=== PATIENT | male | born 2005 | race Caucasian/White ===

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

== ENCOUNTER 2025-01-09 12:35 | Inpatient (IN) | payer OTHER, MEDICAID ==
[~2025-01-09] VITALS: Ht 170.2 cm; Wt 95.3 kg
[2025-01-09 13:15] LABS: CHLORIDE 101 mEq/L (98-107); SODIUM 139 mEq/L (136-145)
[2025-01-09 13:16] LABS: CALCIUM 10.2 mg/dL (8.7-10.4); CARBON DIOXIDE 28 mEq/L (21-32)
[2025-01-09 13:21] LABS: CREATININE 0.8 mg/dL (0.6-1.3); GLUCOSE 142 mg/dL (70-105); UREA NITROGEN BLOOD 8 mg/dL (9-23)
[2025-01-09 13:22] LABS: HEMATOCRIT. 44.2 % (42.0-52.0); HEMOGLOBIN. 14.5 g/dL (14.0-18.0); MEAN CORPUSCULAR HEMOGLOBIN 28.9 pg (28.0-32.0); MEAN CORPUSCULAR HGB CONC 32.7 g/dL (31.0-37.0); MEAN CORPUSCULAR VOLUME 88.2 fL (80.0-94.0); MEAN PLATELET VOLUME 8.4 fl (7.4-10.4); PLATELET 319 x1000/uL (130-400); RED BLOOD CELL COUNT 5.01 mill/uL (4.7-6.1); RED CELL DISTRIBUTION WIDTH 13.7 % (11.6-14.6); WHITE BLOOD COUNT 12.4 x1000/uL (4.5-11.0)
[2025-01-09 13:23] LABS: ALANINE AMINOTRANSFERASE 370 IU/L (10-49); ALBUMIN 5.1 g/dL (3.2-4.8); ASPARTATE AMINOTRANSFERASE 157 IU/L (<34); BILIRUBIN DIRECT 0.6 mg/dL (<=3.0); BILIRUBIN TOTAL 1.7 mg/dL (0.1-1.0); PROTEIN TOTAL 8.3 g/dL (6.0-8.3)
[2025-01-09 13:26] LABS: DIFFERENTIAL COMMENT 1
[2025-01-09] MEDS: MORPHINE SULFATE 4 MG/ML INJ (FOR IV/IM USE) IV ONE (14:04)
[2025-01-09] MEDS: ONDANSETRON HCL 4MG/2ML INJ IV ONE (14:04)
[2025-01-09] MEDS ORDERED: METRONIDAZOLE 500 MG PREMIX 100 ML IV ONE (16:45)
[2025-01-09] MEDS ORDERED: DOCUSATE SODIUM 100MG CAPSULE PO PRN (17:15)
[2025-01-09] MEDS ORDERED: ONDANSETRON HCL 4MG/2ML INJ IV PRN (17:15)
[2025-01-09] MEDS ORDERED: IPRATROPIUM/ALBUTEROL 0.5-3(2.5)MG/3ML NEB HHN PRN (17:15)
[2025-01-09] MEDS ORDERED: MAGNESIUM/ALUMINUM HYDROXIDE/SIMETHICONE 30ML UDC PO PRN (17:15)
[2025-01-09] MEDS ORDERED: ACETAMINOPHEN 325MG TABLET PO PRN ×2 (17:15)
[2025-01-09] MEDS ORDERED: METRONIDAZOLE 500 MG PREMIX 100 ML IV SCH (17:15)
[2025-01-09] MEDS ORDERED: CLONIDINE 0.1MG TABLET PO PRN (17:15)
[2025-01-09 19:59] LABS: ALBUMIN 5.2 g/dL (3.2-4.8)
[2025-01-09] MEDS: SODIUM CHLORIDE 0.9% (SEPSIS BOLUS) IV NR (20:30)
[2025-01-09] MEDS: PIPERACILLIN/TAZO 3.375G/50ML IV NR (20:35)
[2025-01-09] MEDS: DEXT 5%/0.45% NACL 1000ML 1,000 ML IV SCH (21:00)
[2025-01-09] MEDS ORDERED: PIPERACILLIN/TAZO 3.375G/50ML 50 ML IV SCH (22:00)
[2025-01-09 22:43] VITALS: BP 147/96; PULSE 97; RESP 12; TEMP 36.8; O2SAT 98
[2025-01-09 22:54] VITALS: BP 147/96; PULSE 97; RESP 12; TEMP 36.8
[2025-01-09] MEDS ORDERED: PIPERACILLIN/TAZO 3.375G/50ML IV SCH (23:30)
[2025-01-10] VITALS: BP 125/70; PULSE 91; RESP 19; TEMP 36.8; O2SAT 97
[2025-01-10 04:00] VITALS: BP 121/75; PULSE 91; RESP 16; TEMP 36.7; O2SAT 98
[2025-01-10] MEDS: KETOROLAC 15MG/ML VIAL IV PRN (04:03)
[2025-01-10] MEDS: PIPERACILLIN/TAZO 3.375G/50ML 50 ML IV SCH (05:39)
[2025-01-10 07:21] LABS: HEMATOCRIT 37.1 % (42.0-52.0); HEMOGLOBIN 12.6 g/dL (14.0-18.0); MEAN CORPUSCULAR HEMOGLOBIN 30.3 pg (28.0-32.0); MEAN CORPUSCULAR VOLUME 89.1 fL (80.0-94.0); PLATELET 258 x1000/uL (130-400); RED BLOOD CELL COUNT 4.16 mill/uL (4.7-6.1); RED CELL DISTRIBUTION WIDTH 13.4 % (11.6-14.6); WHITE BLOOD COUNT 10.7 x1000/uL (4.5-11.0)
[2025-01-10 08:00] VITALS: BP 101/69; PULSE 89; RESP 20; TEMP 36.7; O2SAT 98
[2025-01-10 08:20] LABS: CHLORIDE 102 mEq/L (98-107); POTASSIUM 3.7 mEq/L (3.5-5.1); SODIUM 138 mEq/L (136-145)
[2025-01-10 08:21] LABS: CALCIUM 9.4 mg/dL (8.7-10.4); CARBON DIOXIDE 28 mEq/L (21-32)
[2025-01-10 08:26] LABS: CREATININE 0.6 mg/dL (0.6-1.3); GLUCOSE 130 mg/dL (70-105); UREA NITROGEN BLOOD 8 mg/dL (9-23)
[2025-01-10 08:28] LABS: ALANINE AMINOTRANSFERASE 204 IU/L (10-49); ALBUMIN 4.4 g/dL (3.2-4.8); ASPARTATE AMINOTRANSFERASE 47 IU/L (<34); BILIRUBIN TOTAL 1.5 mg/dL (0.1-1.0)
[2025-01-10] MEDS: PANTOPRAZOLE SODIUM 40 MG/VIAL IV SCH (09:39)
[2025-01-10 09:44] LABS: PLATELET ESTIMATE NORMAL
[2025-01-10 12:00] VITALS: BP 110/60; PULSE 97; RESP 16; TEMP 36.8; O2SAT 99
[2025-01-10 16:00] VITALS: BP 112/50; PULSE 99; RESP 18; TEMP 36.7; O2SAT 98
[2025-01-10] MEDS: LACTATED RINGERS 1,000 ML IV SCH (19:33)
[2025-01-10] MEDS: VANCOMYCIN 2,000 MG in SODIUM CHLORIDE 0.9% 500 ML IV NR (19:33)
[2025-01-10 20:00] VITALS: BP 124/84; PULSE 93; RESP 16; TEMP 37; O2SAT 96
[2025-01-11] VITALS: BP 115/84; PULSE 100; RESP 18; TEMP 36.6; O2SAT 97
[2025-01-11 04:00] VITALS: BP 120/77; PULSE 94; RESP 18; TEMP 36.8; O2SAT 96
[2025-01-11] MEDS: VANCOMYCIN 1.5GM/250ML IV SCH (06:06)
[2025-01-11 07:24] LABS: BASOPHILS % 0.2 % (0.0-2.0); EOSINOPHILS % 0.4 % (0.0-5.0); HEMATOCRIT. 34.6 % (42.0-52.0); HEMOGLOBIN. 11.8 g/dL (14.0-18.0); LYMPHOCYTES % 12.5 % (20.0-50.0); MEAN CORPUSCULAR HEMOGLOBIN 30.2 pg (28.0-32.0); MEAN CORPUSCULAR HGB CONC 34.1 g/dL (31.0-37.0); MEAN CORPUSCULAR VOLUME 88.4 fL (80.0-94.0); MEAN PLATELET VOLUME 8.4 fl (7.4-10.4); MONOCYTES % 9.7 % (2.0-8.0); NEUTROPHILS % 77.2 % (40.0-76.0); PLATELET 231 x1000/uL (130-400); RED BLOOD CELL COUNT 3.91 mill/uL (4.7-6.1); RED CELL DISTRIBUTION WIDTH 13.5 % (11.6-14.6); WHITE BLOOD COUNT 8.8 x1000/uL (4.5-11.0)
[2025-01-11 07:49] LABS: CALCIUM 9.5 mg/dL (8.7-10.4); CARBON DIOXIDE 27 mEq/L (21-32); CHLORIDE 101 mEq/L (98-107); POTASSIUM 3.7 mEq/L (3.5-5.1); SODIUM 139 mEq/L (136-145)
[2025-01-11 07:54] LABS: ALANINE AMINOTRANSFERASE 114 IU/L (10-49); GLUCOSE 107 mg/dL (70-105); TRIGLYCERIDE 93 mg/dL (0-150); UREA NITROGEN BLOOD 8 mg/dL (9-23)
[2025-01-11 07:55] LABS: ALBUMIN 4.3 g/dL (3.2-4.8)
[2025-01-11 07:56] LABS: ASPARTATE AMINOTRANSFERASE 20 IU/L (<34); BILIRUBIN DIRECT 0.6 mg/dL (<=3.0); BILIRUBIN TOTAL 1.6 mg/dL (0.1-1.0); PHOSPHORUS 3.2 mg/dL (2.5-4.9)
[2025-01-11 08:00] VITALS: BP 124/83; PULSE 88; RESP 20; TEMP 36.7; O2SAT 99
[2025-01-11 09:32] LABS: CLARITY URINE CLEAR (CLEAR); COLOR URINE YELLOW (YELLOW); GLUCOSE URINE NEGATIVE (NEGATIVE); KETONES URINE TRACE (NEGATIVE); LEUKOCYTE ESTERASE URINE TRACE (NEGATIVE); NITRITE URINE NEGATIVE (NEGATIVE); OCCULT BLOOD URINE NEGATIVE (NEGATIVE); PH URINE 6.5 (4.5-8.0); PROTEIN URINE TRACE (NEGATIVE); SPECIFIC GRAVITY URINE 1.014 (1.005-1.030)
[2025-01-11 09:55] LABS: BACTERIA URINE 1+; RBC URINE NONE SEEN /hpf (0-2); SQUAMOUS EPITHELIAL CELL URINE 1+ /lpf (RARE/1+); YEAST URINE NONE SEEN
[2025-01-11 10:14] LABS: *AMPHETAMINES SCREEN URINE NEGATIVE (NEGATIVE); *BARBITURATES SCREEN URINE NEGATIVE (NEGATIVE); *BENZODIAZEPINES SCREEN URINE NEGATIVE (NEGATIVE); *COCAINE SCREEN URINE NEGATIVE (NEGATIVE); CANNABINOID URINE SCREEN NEGATIVE (NEGATIVE); METHADONE URINE SCREEN NEGATIVE (NEGATIVE); OPIATES URINE SCREEN NEGATIVE (NEGATIVE); PHENCYCLIDINE URINE SCREEN NEGATIVE (NEGATIVE)
[2025-01-11 10:15] LABS: ECSTASY MDMA SCREEN URINE NEGATIVE (NEGATIVE)
[2025-01-11 12:00] VITALS: BP 119/75; PULSE 90; RESP 16; TEMP 36.8; O2SAT 98
[2025-01-11 12:12] LABS: HEPATITIS B SURFACE ANTIGEN NEGATIVE (Negative)
[2025-01-11] MEDS: BISACODYL 5MG TABLET PO NR (12:25)
[2025-01-11 12:33] LABS: HEPATITIS A AB IGM NEGATIVE (Negative); HEPATITIS B CORE AB IGM NEGATIVE (Negative)
[2025-01-11 12:34] LABS: HEPATITIS C AB NON REACTIVE (Neg) (Negative)
[2025-01-11 16:00] VITALS: BP 108/58; PULSE 82; RESP 20; TEMP 36.8; O2SAT 98
[2025-01-11 20:00] VITALS: BP 111/64; PULSE 86; RESP 18; TEMP 36.8; O2SAT 96
[2025-01-12 04:00] VITALS: BP 112/57; PULSE 66; RESP 16; TEMP 36.3; O2SAT 95
[2025-01-12 07:54] LABS: BASOPHILS % 0.2 % (0.0-2.0); EOSINOPHILS % 1.5 % (0.0-5.0); HEMATOCRIT. 31.5 % (42.0-52.0); HEMOGLOBIN. 10.8 g/dL (14.0-18.0); LYMPHOCYTES % 13.5 % (20.0-50.0); MEAN CORPUSCULAR HEMOGLOBIN 30.2 pg (28.0-32.0); MEAN CORPUSCULAR HGB CONC 34.3 g/dL (31.0-37.0); MEAN CORPUSCULAR VOLUME 87.9 fL (80.0-94.0); MEAN PLATELET VOLUME 7.9 fl (7.4-10.4); MONOCYTES % 11.3 % (2.0-8.0); NEUTROPHILS % 73.5 % (40.0-76.0); PLATELET 229 x1000/uL (130-400); RED BLOOD CELL COUNT 3.58 mill/uL (4.7-6.1); RED CELL DISTRIBUTION WIDTH 13.1 % (11.6-14.6); WHITE BLOOD COUNT 7.7 x1000/uL (4.5-11.0)
[2025-01-12 08:00] VITALS: BP 130/69; PULSE 78; RESP 19; TEMP 36.8; O2SAT 99
[2025-01-12 08:24] LABS: CARBON DIOXIDE 30 mEq/L (21-32); CHLORIDE 105 mEq/L (98-107); POTASSIUM 3.6 mEq/L (3.5-5.1); SODIUM 142 mEq/L (136-145)
[2025-01-12 08:29] LABS: GLUCOSE 129 mg/dL (70-105)
[2025-01-12 08:30] LABS: UREA NITROGEN BLOOD 9 mg/dL (9-23)
[2025-01-12 12:00] VITALS: BP 126/70; PULSE 75; RESP 19; TEMP 36.8; O2SAT 100
[2025-01-12 16:00] VITALS: BP 122/65; PULSE 76; RESP 18; TEMP 36.9; O2SAT 98
[2025-01-12 20:00] VITALS: BP 120/67; PULSE 83; RESP 19; TEMP 36.2; O2SAT 98
[2025-01-13] VITALS: BP 117/66; PULSE 72; RESP 19; TEMP 36.3; O2SAT 100
[2025-01-13 04:00] VITALS: BP 135/73; PULSE 84; RESP 19; TEMP 36.2; O2SAT 96
[2025-01-13 08:00] VITALS: BP 115/69; PULSE 94; RESP 20; TEMP 36.3; O2SAT 96
[2025-01-13] MEDS ORDERED: PANT40TA51 MT (10:14)
[2025-01-13] MEDS ORDERED: AMOX1TAB15 MT (10:14)
[2025-01-13] MEDS ORDERED: SULF1TAB48 MT (10:21)
[2025-01-13 11:59] VITALS: BP 103/60; PULSE 75; TEMP 98.1; O2SAT 98
[2025-01-13 12:00] VITALS: BP 103/60; PULSE 75; RESP 18; TEMP 36.7; O2SAT 98
== END 2025-01-13 13:11 | disposition home or self-care (01) | DRG 720 ==
LOC: ER 12:35 → EDBEDREQ 16:50 → EDBEDREQSVC 16:50 → EDBEDREQTM 16:50 → 3WST 22:39 → 8EST 01-11 11:31
PROVIDERS: ADMIT Internal Medicine; ATTEND Internal Medicine
DX: A41.9 Sepsis, unspecified organism (principal); K85.10 Biliary acute pancreatitis without necrosis or infection; K80.00 Calculus of gallbladder with acute cholecystitis without obstruction; K76.0 Fatty (change of) liver, not elsewhere classified; E66.9 Obesity, unspecified; K86.1 Other chronic pancreatitis; R74.01 Elevation of levels of liver transaminase levels; R62.50 Unspecified lack of expected normal physiological development in childhood; E80.6 Other disorders of bilirubin metabolism; Z68.32 Body mass index [BMI] 32.0-32.9, adult
CPT/HCPCS: 36415; 74176; 74181; 76705; 80048; 80053; 80076; 80202; 80305; 81003; 82040; 82150; 83036; 83605; 83735; 84100; 84145; 84478; 85025; 85027; 86705; 86709; 87077; 87186; 87340; 93970; 99285; A4606; J1885; J2270; J2405; J2470; J2543; J3370; J7030; J7040; J7120